=== PATIENT | male | born 1975 | race Two or more races ===

== ENCOUNTER → 2025-01-14 | Outpatient (CLI) | payer BC, SELFPAY ==
--- NOTE | 2025-01-14 09:27 | XR_ITS ---
Examination: Abdomen AP single view Technique: AP portable supine abdomen, single view Exam date and time: January 14, 2025 0929 hours INDICATIONS: Lower abdominal pain beginning one week ago. FINDINGS: Moderate stool in the right colon. No obstruction. No free air. No abnormal calcific densities IMPRESSION: Nonobstructive bowel gas pattern
[2025-01-14 11:03] LABS: Collection Type, Urine Clean Catch; RBC,Urine 0 /hpf (0-3); Squamous Epithelial Cell,Urine 0 /hpf (0-5)
[2025-01-14 12:05] LABS: Alanine Aminotransferase 21 U/L (10-49); Albumin, Serum 4.5 gm/dL (3.5-5.0); Albumin/Globulin Ratio 1.7 (1.2-2.2); Alkaline Phosphatase 88 U/L (46-116); Anion Gap 10 (7-16); Aspartate Amino Transferase 22 U/L (0-34); BUN/Creatinine Ratio 9 Ratio (12-20); Bilirubin,Total 0.7 mg/dL (0.3-1.2); Blood Urea Nitrogen 11 mg/dL (9-23); Calcium 9.3 mg/dL (8.3-10.6); Calcium (Corrected) 9.3 mg/dL (8.5-10.1); Carbon Dioxide 29.2 mMol/L (20.0-31.0); Chloride 104 mMol/L (98-107); Creatinine (Component) 1.2 mg/dL (0.6-1.3); Globulin 2.7 gm/dL (2.3-3.5); Glucose 95 mg/dL (74-106); Magnesium 1.9 mg/dL (1.6-2.6); Osmolality,Calculated 284 (275-295); Potassium 4.3 mMol/L (3.4-5.1); Sodium 143 mMol/L (136-145); Total Protein 7.2 gm/dL (5.7-8.2); eGFR > 60 See Note
[2025-01-14 12:39] LABS: Bilirubin,Urine Negative (Negative); Blood,Urine Negative (Negative); Clarity,Urine Clear (Clear/Hazy); Color,Urine Yellow (Lt Yel-Yel); Glucose, Urine Negative (Negative); Ketones,Urine Negative (Negative); Leukocyte Esterase,Urine Negative (Negative); Nitrite,Urine Negative (Negative); PH,Urine 5.5 (5.0-7.0); Protein,Urine Trace (Neg - Trace); Specific Gravity,Urine 1.032 (1.001-1.035); Urobilinogen,Urine Negative mg/dL (0.0-1.0); WBC,Urine < 1 /hpf (0-5)
== END | disposition home or self-care (01) ==
LOC: CDIM 09:24 → COPL 09:49
PROVIDERS: PCP Family Medicine; Referring Provider Family Medicine; Visit Provider Radiology Diagnostic Radiology
DX: R10.84 Generalized abdominal pain (principal); R25.2 Cramp and spasm
CPT/HCPCS: 36415; 74018; 80053; 81001; 83735

== ENCOUNTER 2025-01-23 05:44 | Emergency (ER) | payer BC, SELFPAY ==
[2025-01-23 05:46] VITALS: BP 117/83; PULSE 75; RESP 17; TEMP 36.9; O2SAT 95; BMI 35.2
--- NOTE | 2025-01-23 06:18 | XR_ITS ---
Examination: Testicular sonography complete TECHNIQUE: Grayscale sonographic images testes, assessment arterial inflow venous outflow Doppler spectral analysis carful analysis Date and time: January 23, 2025 0823 hours INDICATIONS: Right testicular pain beginning 2 weeks ago FINDINGS: Right testis 5.1 cm epididymis 5.6 cm Arterial flow testicle. No testicular mass. Minimal hydrocele Left testis 5.3 cm epididymis 5.3 cm Arterial flow testicle. No testicular mass Minimal hydrocele IMPRESSION: No testicular torsion or testicular mass Bilateral epididymitis
--- NOTE | 2025-01-23 06:18 | XR_ITS ---
Examination: CT abdomen and pelvis without contrast. Coronal 3-D reconstructions. Sagittal 2-D reconstructions. Date and time of exam:January 23, 2025 0633 hours Comparison January 26, 2024 INDICATIONS: Right lower abdominal pain beginning 2 weeks ago CTDI: vol (mGy): 10 DLP: (mGycm): 638 Technique: Axial images of the abdomen have been obtained, 3 mm slice thickness Intravenous contrast material has not been administered. Low dose protocols were performed. One or more of the following dose reduction techniques were used; automated exposure control, adjustment of the mA and/or KV according to patient size, use of iterative reconstruction technique. Findings: No focal liver or splenic lesions No gallstones No pancreatic or adrenal mass No renal or ureteral calculi, no hydronephrosis, there is minimal perinephric stranding Aorta normal size Normal appendix No bowel obstruction No diverticulitis Contracted urinary bladder, the urinary bladder wall is thickened up to 13 mm Advanced degenerative disc disease L5-S1 IMPRESSION: Perinephric stranding, differential would include urinary tract infection Significant thickening of the urinary bladder wall, cystitis pattern Normal appendix
--- NOTE | 2025-01-23 06:21 | PD.EDABDPN ---
ED Abdominal Pain RME/HPI General Chief Complaint: Abdominal Pain Stated complaint: R LOWER ABD PAIN 2 WKS Time seen by provider: 01/23/25 06:08 Arrival date/time: 01/23/25 05:44 49-year-old male with no known medical history presents to the emergency room with a chief complaint of right groin and testicle pain x 2 weeks Source: patient Mode of arrival: ambulatory Limitations: no limitations Related Data Home Medications ?Medication ?Instructions ?Recorded ?Confirmed baclofen 10 mg tablet 10 mg PO BID 08/04/21 08/04/21 loratadine 10 mg tablet 10 mg PO QDAY 08/04/21 08/04/21 meloxicam 15 mg tablet 15 mg PO QDAY 08/04/21 08/04/21 omeprazole 40 mg capsule,delayed 40 mg PO QDAY 08/04/21 08/04/21 release Previous Rx's ?Medication ?Instructions ?Recorded doxycycline monohydrate 100 mg 100 mg PO BID 10 days #20 caps 01/23/25 capsule Allergies Allergy/AdvReac Type Severity Reaction Status Date / Time No Known Allergies Allergy Verified 01/23/25 05:49 Review of Systems Review of Systems Systems Reviewed: All systems reviewed, normal except as documented Constitutional Constitutional: Reports system reviewed and no additional complaints, except as documented, Denies fatigue, Denies fever(s), Denies headache(s) and Denies weakness Eyes Eyes: Reports system reviewed and no additional complaints, except as documented, Denies blurry vision and Denies change in vision ENT Ears, Nose, Mouth, and Throat: Reports system reviewed and no additional complaints, except as documented, Denies otalgia, Denies headache(s), Denies nasal congestion, Denies throat swelling and Denies vertigo Cardiovascular Cardiovascular: Reports system reviewed and no additional complaints, except as documented, Denies chest pain, Denies dyspnea and Denies dyspnea on exertion Respiratory Respiratory: Reports system reviewed and no additional complaints, except as documented, Denies chest congestion, Denies cough, Denies dyspnea, Denies dyspnea on exertion and Denies wheezing Gastrointestinal Gastrointestinal: Reports system reviewed and no additional complaints, except as documented, Reports abdominal pain, Reports cramping, Denies nausea and Denies vomiting Genitourinary Genitourinary: Reports system reviewed and no additional complaints, except as documented, Denies dysuria and Denies hematuria Musculoskeletal Musculoskeletal: Reports system reviewed and no additional complaints, except as documented and Denies back pain Integumentary/Breasts Skin/Breast: Reports system reviewed and no additional complaints, except as documented and Denies wounds Neurologic Neurologic: Reports system reviewed and no additional complaints, except as documented, Denies confusion, Denies headache(s), Denies lack of coordination, Denies vertigo and Denies weakness Psychiatric Psychiatric: Reports system reviewed and no additional complaints, except as documented, Denies anxiety, Denies confusion, Denies depression, Denies paranoia, Denies suicidal ideation and Denies tactile hallucinations Endocrine Endocrine: Reports system reviewed and no additional complaints, except as documented and Denies fatigue Hematologic/Lymphatic Hematologic/Lymphatic: Reports system reviewed and no additional complaints, except as documented and Denies lymphadenopathy Allergic/Immunologic Allergic/Immunologic: Reports system reviewed and no additional complaints, except as documented, Denies throat swelling, Denies urticaria and Denies wheezing ED Exam General Limitations: Present no limitations General appearance: Present alert and in no apparent distress Head Head exam: Present atraumatic Eye Eye exam: Present normal appearance, PERRL and EOMI ENT ENT exam: Present normal exam, normal oropharynx and mucous membranes moist Neck Neck exam: Present normal inspection, full ROM and trachea midline Chest Chest inspection: Present normal inspection and symmetric chest wall rise Respiratory Respiratory exam: Present normal lung sounds bilaterally Cardiovascular Cardiovascular exam: Present regular rate, normal rhythm and normal heart sounds Abdominal Exam Abdominal exam: Present soft and normal bowel sounds; Absent Byers's sign or tenderness at McBurney's Point Abdominal tenderness: Present RLQ and mild Extremities Exam Extremities exam: Present normal inspection and full ROM Back Exam Back exam: Present normal inspection and full ROM Neurological Exam Neurological exam: Present alert, oriented X3 and CN II-XII intact Psychiatric Psychiatric exam: Present normal affect and normal mood Skin Skin exam: Present warm, dry, intact and normal color Course Quality Measures none Orders Category Date Time Status CT abdomen pelvis wo con Stat Exams 01/23/25 06:18 Completed US testicular Stat Exams 01/23/25 06:18 Completed CBC Stat Lab 01/23/25 07:00 Completed CMP [Comprehensive Metabolic Panel] Stat Lab 01/23/25 07:00 Completed Chlamydia/GC/TV - PCR Stat Lab 01/23/25 06:21 Received Lipase Stat Lab 01/23/25 07:00 Completed PSA [Prostate Specific Antigen] Stat Lab 01/23/25 07:00 Completed Syphilis Stat Lab 01/23/25 07:00 Completed UA [Urinalysis] Stat Lab 01/23/25 06:30 Completed Urine Culture Stat Lab 01/23/25 06:30 Received HYDROcodone/APAP 10/325 [Hood 10/325] Med 01/23/25 07:39 Discontinued 1 tab PO X1 ONE cefTRIAXone [Rocephin] 1,000 mg Med 01/23/25 10:05 Discontinued Lidocaine 1% 20 ml [Xylocaine 1% 20 ML] 2.1 ml IM X1 Vital Signs Vital signs: Vital Signs Temperature 98.4 F 01/23/25 05:46 Pulse Rate 75 01/23/25 05:46 Respiratory Rate 17 01/23/25 05:46 Blood Pressure 117/83 01/23/25 05:46 Pulse Oximetry (%) 95 01/23/25 05:46 Oxygen Delivery Method Room Air 01/23/25 05:46 Abdominal Pain MDM MDM Narrative MDM Narrative:: 49-year-old male with no known medical history presents to the emergency room with a chief complaint of right groin and testicle pain x 2 weeks Patient is hemodynamically stable and in no apparent distress. He is afebrile not tachycardic not tachypneic Physical examination shows some pain to the right groin area that radiates to his testicles. There is no testicular swelling or penile discharge. The patient denies any dysuria or hematuria. There is no right lower quadrant abdominal tenderness or any tenderness to any other part of the abdomen A CT abdomen and pelvis was completed and shows some significant thickening of the urinary bladder wall. The ultrasound of the testicles shows some bilateral epididymitis GC chlamydia are pending but the patient was educated to follow-up on his patient portal or with his primary care provider to check the results for any STDs exposure Patient was given medication and discharged Patient was discharged and educated to follow-up with primary care provider in the next 24 to 48 hours and return to the emergency room for any evidence of worsening signs or symptoms Patient data External records reviewed:: [facility] previous records Clinical information provided by:: patient Social determinants that could affect healthcare access:: none Patient has the following chronic illnesses:: No chronic illness How is presenting disease/condition affected by chronic disease/condition?: no chronic disease Evaluation data The following diagnostics were reviewed and interpreted by me:: lab results and radiology exam(s) Lab and/or radiology exams considered but not ordered:: Lab results radiology exams considered and ordered Interpretation Summary: CT abdomen and pelvis-Findings: No focal liver or splenic lesions No gallstones No pancreatic or adrenal mass No renal or ureteral calculi, no hydronephrosis, there is minimal perinephric stranding Aorta normal size Normal appendix No bowel obstruction No diverticulitis Contracted urinary bladder, the urinary bladder wall is thickened up to 13 mm Advanced degenerative disc disease L5-S1 IMPRESSION: Perinephric stranding, differential would include urinary tract infection Significant thickening of the urinary bladder wall, cystitis pattern Normal appendix Testicular ultrasound-FINDINGS: Right testis 5.1 cm epididymis 5.6 cm Arterial flow testicle. No testicular mass. Minimal hydrocele Left testis 5.3 cm epididymis 5.3 cm Arterial flow testicle. No testicular mass Minimal hydrocele IMPRESSION: No testicular torsion or testicular mass Bilateral epididymitis Medications / Prescriptions Medications or Prescriptions considered but not ordered:: No medication given Medication administrations:: Medication Administration History Discontinued Medications Hydrocodone Bitart/Acetaminophen (Hydrocodone/Apap 10/325 Tab) 1 tab PO X1 ONE Stop: 01/23/25 07:40 Last Admin: 01/23/25 07:45 Dose: 1 tab Documented By: NATALYA Ceftriaxone Sodium 1,000 mg/ (Lidocaine HCl 2.1 ml) 0 mg IM X1 ONE Stop: 01/23/25 10:06 Last Admin: 01/23/25 10:18 Dose: 1,000 mg Documented By: NATALYA Comments: No medication given Consultations Consultation(s) initiated? (list below): No Diagnosis Differential diagnosis abdominal pain: abdominal pain, acute appendicitis, constipation, gastroenteritis and other (Bilateral epididymitis) Most likely diagnosis given after review of the tests above:: Bilateral epididymitis Admission Indicated Admission indicated?: not indicated Admission Request Was there a request for admission?: No Disposition Plan Disposition Plan: Discharge Discharge Attestation Discharge Attestation: The patient and all family members were given an opportunity to ask questions and understood the discharge instructions. Discharge instructions specifically effects, indications for sooner follow up or return to the emergency department, and the expected course of current diagnosis. Patient condition: Stable Discharge Plan Plan Patient Disposition: HOME (Self Care) Discharge Disposition comment: Stable Prescriptions/Referrals Prescriptions/Med Rec: New doxycycline monohydrate 100 mg capsule 100 mg PO BID 10 Days Qty: 20 0RF No Action meloxicam 15 mg tablet 15 mg PO QDAY omeprazole 40 mg capsule,delayed release(DR/EC) 40 mg PO QDAY baclofen 10 mg tablet 10 mg PO BID loratadine 10 mg tablet 10 mg PO QDAY Referrals: Shira Marinelli MD [Primary Care Provider] - In 1 week Problem List Clinical Impression: Bilateral epididymitis Patient/Caregiver Discharge Instructions Education Materials: Treating Epididymitis and Orchitis, ED Epididymitis Additional Instructions: Please follow-up with your primary care provider in the next 24 to 48 hours Antibiotics are sent to your pharmacy please pick them up and take them as indicated For any evidence of worsening sign or symptom return to the emergency room immediately Print Language: Panamanian Stand Alone Forms: Abby Award Info., Patient Portal Info Letter PA/PAPER CUTTING MACHINE OPERATOR Supervising Physician PA/PAPER CUTTING MACHINE OPERATOR Supervising Physician: Dr. Drake
[2025-01-23 06:48] LABS: Collection Type, Urine Clean Catch; Squamous Epithelial Cell,Urine 0 /hpf (0-5)
[2025-01-23 07:00] LABS: Bilirubin,Urine Negative (Negative); Blood,Urine Negative (Negative); Clarity,Urine Clear (Clear/Hazy); Color,Urine Lt-Yellow (Lt Yel-Yel); Glucose, Urine Negative (Negative); Ketones,Urine Negative (Negative); Leukocyte Esterase,Urine Negative (Negative); Nitrite,Urine Negative (Negative); PH,Urine 6.0 (5.0-7.0); Protein,Urine Negative (Neg - Trace); RBC,Urine 1 /hpf (0-3); Specific Gravity,Urine 1.020 (1.001-1.035); Urobilinogen,Urine Negative mg/dL (0.0-1.0); WBC,Urine < 1 /hpf (0-5)
--- NOTE | 2025-01-23 07:00 | PC.NURSE ---
REPORT RECEIVED AT THIS TIME; MELL GABRIEL RN, PT COMING IN HERE TODAY WITH C/O R TESTICULAR PAIN; PT STATES IT'S BEEN GOING ON FOR ABOUT 2 WEEKS. PT HAS HX OF CHRONIC BACK PAIN AND L KNEE PAIN FROM AN ACCIDENT AT WORK AND HX OF CONSTIPATION S/P OPIOD USE FOR PAIN MANAGEMENT; PT TAKES NORCO AT HOME. PT ALSO HAS HX OF GERD. NKA. PT CONNECTED TO MONITOR; NO ACUTE DISTRESS NOTED AT THIS TIME.
[2025-01-23 07:15] VITALS: BP 109/63; PULSE 66; RESP 17; TEMP 37; O2SAT 98
[2025-01-23 07:16] LABS: Basophils # (Auto) 0.1 Thou/mm3 (0.0-0.2); Basophils % (Auto) 1 % (0-2.5); Eosinophils # (Auto) 0.2 Thou/mm3 (0.0-0.5); Eosinophils % (Auto) 3 % (0-10); Hematocrit 43.8 % (41.0-53.0); Hemoglobin 16.2 g/dL (13.5-16.0); Immature Granulocytes Auto 0.04 Thou/mm3 (0.00-0.00); Lymphocytes # (Auto) 3.5 Thou/mm3 (1.0-4.8); Lymphocytes % (Auto) 36 % (10-50); Mean Corpuscular HGB Conc 37.0 g/dl (31.0-37.0); Mean Corpuscular Hemoglobin 32.5 pg (25.0-35.0); Mean Corpuscular Volume 88 fL (80-100); Monocytes # (Auto) 0.9 Thou/mm3 (0.0-0.8); Monocytes % (Auto) 9 % (0-12); Neutrophils # (Auto) 5.0 Thou/mm3 (1.8-7.7); Neutrophils % (Auto) 52 % (37-80); Nucleated Red Blood Cell # 0.00 Thou/mm3 (0.00-0.00); Nucleated Red Blood Cell % 0 /100 WBC (0); Platelet Count 249 Thou/mm3 (140-440); RDW Standard Deviation 38.8 fL (35.1-43.9); Red Blood Count 4.98 Miln/mm3 (4.50-5.90); White Blood Count 9.7 Thou/mm3 (3.8-10.6)
[2025-01-23 07:25] LABS: Alanine Aminotransferase 17 U/L (10-49); Albumin, Serum 4.8 gm/dL (3.5-5.0); Albumin/Globulin Ratio 1.9 (1.2-2.2); Alkaline Phosphatase 96 U/L (46-116); Anion Gap 7 (7-16); Aspartate Amino Transferase 15 U/L (0-34); BUN/Creatinine Ratio 10 Ratio (12-20); Bilirubin,Total 1.0 mg/dL (0.3-1.2); Blood Urea Nitrogen 12 mg/dL (9-23); Calcium 9.7 mg/dL (8.3-10.6); Calcium (Corrected) 9.7 mg/dL (8.5-10.1); Carbon Dioxide 28.6 mMol/L (20.0-31.0); Chloride 104 mMol/L (98-107); Creatinine (Component) 1.2 mg/dL (0.6-1.3); Estimated Creatinine Clearance 85.7 mL/min (>60); Globulin 2.5 gm/dL (2.3-3.5); Glucose 98 mg/dL (74-106); Lipase 44 U/L (12-53); Osmolality,Calculated 279 (275-295); Potassium 3.7 mMol/L (3.4-5.1); Sodium 140 mMol/L (136-145); Total Protein 7.3 gm/dL (5.7-8.2); eGFR > 60 See Note
[2025-01-23 07:32] LABS: Prostate Specific Antigen 1.11 ng/mL (0-4.00)
[2025-01-23 08:40] LABS: Syphilis Nonreactive (Nonreactive)
[2025-01-23 10:09] VITALS: BP 131/87; PULSE 63; RESP 15; TEMP 36.9; O2SAT 97
[2025-01-23] MEDS: cefTRIAXone 1,000 MG, LIDOCAINE 1% 20 ML 2.1 ML IM (10:18)
[2025-01-23 11:39] VITALS: BP 125/89; PULSE 67; RESP 17; TEMP 37.1; O2SAT 97
[2025-01-23 12:04] VITALS: BP 144/90; PULSE 64; RESP 18; TEMP 36.9; O2SAT 98
[2025-01-23 13:38] LABS: Chlamydia trachomatis PCR Negative (Not Detect); Neisseria Gonorrhoeae DNA PCR Negative (Not Detect); Trichomonas Negative (Negative)
== END 2025-01-23 12:05 | disposition home or self-care (01) ==
PROVIDERS: Nurse Practitioner Family; Emergency Provider Family Medicine; PCP Family Medicine
DX: N45.1 Epididymitis (principal)
CPT/HCPCS: 36415; 74176; 76870; 80053; 81001; 83690; 84153; 85025; 86780; 87086; 87491; 87591; 87661; 96372; 99284; J0696; J3490; A9270